=== PATIENT | female | born 1960 | race Hispanic/Latino ===

== ENCOUNTER 2017-09-12 06:25 | Day surgery (SDC) | payer OTHER, BC ==
[2016-04-10 15:10] VITALS: BMI 28.3
[2017-09-12] MEDS ORDERED: Propofol 10 mg/ml Inj (20 ML) ONE ×2 (07:55→08:47)
[2017-09-12] MEDS ORDERED: Lidocaine 2% Inj (20ml) ONE (08:11)
[2017-09-12] MEDS ORDERED: Midazolam 2 MG/2 ML VIAL ONE (08:47)
[2017-09-12] MEDS ORDERED: Sodium Chloride 0.9% 1,000 ML IV SCH (09:15)
[2017-09-12 10:01] VITALS: BP 120/64; PULSE 61; RESP 19; TEMP 98; O2SAT 100
== END 2017-09-12 10:24 | disposition home or self-care (01) ==
LOC: ENDO 06:25
PROVIDERS: ATTEND Internal Medicine Gastroenterology
DX: Z12.11 Encounter for screening for malignant neoplasm of colon (principal); K64.1 Second degree hemorrhoids; K31.7 Polyp of stomach and duodenum; K29.50 Unspecified chronic gastritis without bleeding; K21.0 Gastro-esophageal reflux disease with esophagitis; I10 Essential (primary) hypertension
CPT/HCPCS: 43239; 43251; 45378; 88305; 88312; 88342; J2250; J2704; J3010; J7040 ×2